=== PATIENT | female | born 1985 | race Caucasian/White ===

== ENCOUNTER → 2016-08-21 | Outpatient (CLI) | payer OTHER ==
[~2016-08-21] MED LIST: IRON TABLETS325 MG PO; MOTRIN 400MG.400 MG PO; PRENATAL VITAMI1 TA3 PO
[2016-08-21 11:42] LABS: LYMPH # 1.1 K/mm3 (0.7-4.5); LYMPH % 22.5 % (10-50.0)
[2016-08-21 12:36] LABS: ABO BLOOD TYPE A; RH BLOOD TYPE NEGATIVE
[2016-08-22 08:39] LABS: HIV Screen 4th Generation wRfx Non Reactive (Non Reactive); Rapid Plasma Reagin, Quant Non Reactive (NonRea<1:1)
[2016-08-22 09:42] LABS: HBsAg Screen Negative (Negative)
== END ==
LOC: LAB 11:14
PROVIDERS: Nurse Practitioner Obstetrics & Gynecology
DX: Z34.80 Encounter for supervision of other normal pregnancy, unspecified trimester (principal)
CPT/HCPCS: G0432

== ENCOUNTER 2017-01-01 08:02 | Outpatient (CLI) | payer OTHER ==
[2017-01-01 09:03] LABS: HEMOGLOBIN 11.8 g/dL (12.2-16.2)
[2017-01-01 10:12] LABS: ABO BLOOD TYPE A; RH BLOOD TYPE NEGATIVE; RHOGAM LOT # RHOGAM INFORMATION
== END 2017-01-01 11:00 | disposition home or self-care (01) ==
LOC: LAB 08:02
PROVIDERS: Nurse Practitioner Obstetrics & Gynecology
DX: O36.0110 Maternal care for anti-D [Rh] antibodies, first trimester, not applicable or unspecified (principal)
CPT/HCPCS: J2790

== ENCOUNTER → 2017-03-12 | Outpatient (CLI) | payer OTHER | LOC: LAB 17:33 | DX: Z34.80 Encounter for supervision of other normal pregnancy, unspecified trimester (principal) ==

== ENCOUNTER 2017-04-09 01:33 | Inpatient (IN) | payer OTHER ==
[~2017-04-09] VITALS: Ht 162.6 cm; Wt 81.6 kg
[2017-04-09 05:43] LABS: HEMOGLOBIN 11.5 g/dL (12.2-16.2); LYMPH # 1.6 K/mm3 (0.7-4.5); LYMPH % 29.2 % (10-50.0)
[2017-04-09 05:59] VITALS: BP 122/74
[2017-04-09 06:06] LABS: ABO BLOOD TYPE A
[2017-04-09 06:29] LABS: RH BLOOD TYPE NEGATIVE
--- NOTE | 2017-04-09 08:19 | LABOR NOTE ---
Laboring Subjective Subjective Date 04/09/17 Time 0817 Subjective: Pt is having regular contractions Laboring Objective Objective NST: Reactive Contractions: q 2-3 minutes Cervical dilation: 5 Effacement: 75% Station: -3 Membranes are: Bulging Fetus monitoring? Yes Type: External Laboring Assessment Assessment Progressing? Yes Cephalopelvic disproportion? No Problem List: 1. Delivery normal Laboring Plan Plan Anethesia for epidural? Yes Continue to labor down? Yes Plan for ? No Continue to monitor? Yes Start pushing? No Comment: Her membranes are intact and the baby's head is still ballotable. I LEFT the membranes intact. She has a bulging bag of water at 5 cm dilated. at 0818
[2017-04-09 09:00] VITALS: BP 108/73
[2017-04-09 09:09] LABS: URINE BILIRUBIN - DIPSTICK NEGATIVE (NEG); URINE BLOOD NEGATIVE (NEG)
[2017-04-09 09:57] LABS: URINE SQUAMOUS CELLS OCC #/hpf (0-5)
--- NOTE | 2017-04-09 10:01 | LABOR NOTE ---
Laboring Subjective Subjective Date 04/09/17 Time 1000 Subjective: Pt is having regular contractions Laboring Objective Objective NST: Reactive Contractions: q 2-3 minutes Cervical dilation: 6 Effacement: 90% Station: -2 Membranes are: Artificially ruptured (with clear fluid) Fetus monitoring? Yes Type: External Laboring Assessment Assessment Progressing? Yes Cephalopelvic disproportion? No Problem List: 1. Delivery normal Laboring Plan Plan Anethesia for epidural? Yes Continue to labor down? Yes Plan for ? No Continue to monitor? Yes Start pushing? No at 1001
--- NOTE | 2017-04-09 13:40 | LABOR NOTE ---
Laboring Subjective Subjective Date 04/09/17 Time 1339 Subjective: Pt is having regular contractions Laboring Objective Objective NST: Reactive Contractions: q 2-3 minutes Cervical dilation: 9 (fully) Effacement: 100% Station: +2 Membranes are: Artificially ruptured Fetus monitoring? Yes Type: External Laboring Assessment Assessment Progressing? Yes Cephalopelvic disproportion? No Problem List: 1. Delivery normal Laboring Plan Plan Anethesia for epidural? Yes Continue to labor down? Yes Plan for ? No Continue to monitor? Yes Start pushing? Yes at 1340
--- NOTE | 2017-04-09 14:08 | Delivery Note ---
Delivery note Delivery date: 04/09/17 Delivery time: 1345 Anesthesia: Epidural, Hernán Escalera Was labor medically induced? Yes Gestational age in weeks: 40 weeks Days: 1 day Delivery prior to 39 weeks? No Sex: male score at one minute: 8 at 5 minutes: 9 Type of suction: bulb AF: Clear fluid LAC or MLE: LAC (2nd degree) Delivery procedure: Normal Delivery Delivery of placenta: spontaneous Clinical note She is a 31-year-old 2 para 1 who was 40+1 weeks gestational age. She is feeling lots of pressure and as result of that we elected to augment her labor. She was started on IV oxytocin had her membranes ruptured. She progressed to full dilation and delivered spontaneously a liveborn male child at 1340 5 in the afternoon of April 09, 2017. The baby was a liveborn male child with Apgars of 8 at 1 minute and 9 at 5 minutes. On delivery the head the anterior shoulder then delivered followed by the rest infant's body atraumatically. The oropharynx and nasopharynx were bulb suctioned. We allowed the cord to continue to pulsate for approximately 1 minute. We then doubly clamped cord and cut the cord. The baby was then placed on the mother's abdomen for further care. The nurses assigned Apgars of 8 at 1 minute and 9 at 5 minutes. We then obtained cord blood as well as cord pH. The patient received IV oxytocin. Using gentle traction on the cord and countertraction on the fundus I was able to easily deliver the placenta intact. It had a normal three-vessel cord. She had a second-degree perineal laceration that was repaired in the usual fashion with 2-0 Vicryl suture to the deep tissues and 3-0 Vicryl suture to the superficial tissues. She has a Rh negative blood, she is rubella immune and was group B streptococcus negative. She plans to breast-feed. Her nutrition is Dr. Garduno. Estimated blood loss was approximately 400 mL. at 1647
[2017-04-10 07:10] LABS: HEMOGLOBIN 10.2 g/dL (12.2-16.2)
--- NOTE | 2017-04-10 08:03 | ACUTE CARE PROGRESS NOTE (QUA) ---
Progress Notes Subjective Date 04/10/17 Time 0801 Note She is doing very well this morning. She is eating and drinking and ambulating. She is breast-feeding. Her lochia is normal. Patient/family reports: feeling better, no complaints Objective Findings Last VS-Temp:97.7 B/P:108/73 Pulse:91 Resp:18 SaO2: Last weight lbs:180 oz:0 K.648 Method:Stated Laboratory Tests 04/10/17 0606: Hgb 10.2 L, Hct 31.1 L 04/09/17 1350: Cord Blood pH 7.21 L 04/09/17 0820: Urine Color YELLOW, Urine Appearance CLEAR, Urine pH 6.0, Ur Specific [place] <= 1.005, Urine Protein NEGATIVE, Urine Ketones NEGATIVE, Urine Blood NEGATIVE, Urine Nitrate NEGATIVE, Urine Bilirubin NEGATIVE, Urine Urobilinogen 0.2, Ur Leukocyte Esterase NEGATIVE, Urine RBC NONE, Urine WBC NONE, Ur Squamous Epith Cells OCC, Urine Bacteria NONE, Urine Glucose NEGATIVE Exam General appearance: normal appearance, alert, awake, no acute distress Reviewed: vital signs, lab results Assessment/Plan Problem List 1. Delivery normal Patient condition Improving, Stable Plan: continue current care This inpt stay is expected to cross 2 MNs from start of care Yes Comments: She is doing very well this morning. We will plan to send her home tomorrow. at 0802
[2017-04-10 08:20] VITALS: BP 131/71
[2017-04-10 09:28] LABS: ABO BLOOD TYPE A; RH BLOOD TYPE NEGATIVE
[2017-04-10 09:40] LABS: FETALSCREEN NEGATIVE (NEGATIVE); RHOGAM LOT # RHOGAM INFORMATION
[2017-04-11 07:45] VITALS: BP 121/74
--- NOTE | 2017-04-11 08:40 | ACUTE CARE PROGRESS NOTE (QUA) ---
Progress Notes Subjective Date 04/11/17 Time 0839 Note She continues to do very well. She is eating and drinking and ambulating. She is breast-feeding. Her lochia is normal. Patient/family reports: feeling better, no complaints Objective Findings Last VS-Temp:97.7 B/P:131/71 Pulse:92 Resp:16 SaO2: Last weight lbs:180 oz:0 K.648 Method:Stated Exam General appearance: normal appearance, alert, awake, no acute distress Reviewed: vital signs, lab results Assessment/Plan Problem List 1. Delivery normal Patient condition Improving, Stable Plan: continue current care, initiate discharge plan This inpt stay is expected to cross 2 MNs from start of care Yes Comments: She is doing very well this morning. We'll plan to send her home. at 0839
--- NOTE | 2017-04-11 08:43 | Discharge Summary ---
Discharge Summary Admission date: 04/09/17 Discharge date: 04/11/17 Discharge diagnoses: Postterm , spontaneous vaginal delivery Clinical note: She is a 31-year-old 2 now para 2 who is 40+1 weeks gestational age. She was having pressure and occasional contractions. Since she was post dates we elected to augment her labor. Course in hospital: She was started on IV oxytocin and under labor epidural progressed to full dilation. She delivered spontaneously a liveborn male child at 1:45 PM in the afternoon of April 09, 2017. Baby weighed 8 lbs. 11 oz. and was 19-1/2 inches long. He had Apgars of 8 at 1 minute and 9 at 5 minutes. She has done well and has remained afebrile throughout her hospitalization. She is eating and drinking and ambulating. She is breast- feeding. She has A Rh negative blood, she is rubella immune and was group B streptococcus negative. She did receive RhoGam. Her configuration management consultant is Dr. Garduno. Laboratory Tests 04/10/17 0952: RhIG Dose Recommended RHOGAM RELEASE 04/10/17 0614: RBC Mohini Test NEGATIVE, Antibody Screen NEGATIVE, Miscellaneous Test NEGATIVE 04/10/17 0606: Hgb 10.2 L, Hct 31.1 L 04/09/17 1350: Cord Blood pH 7.21 L 04/09/17 0820: Urine Color YELLOW, Urine Appearance CLEAR, Urine pH 6.0, Ur Specific [place] <= 1.005, Urine Protein NEGATIVE, Urine Ketones NEGATIVE, Urine Blood NEGATIVE, Urine Nitrate NEGATIVE, Urine Bilirubin NEGATIVE, Urine Urobilinogen 0.2, Ur Leukocyte Esterase NEGATIVE, Urine RBC NONE, Urine WBC NONE, Ur Squamous Epith Cells OCC, Urine Bacteria NONE, Urine Glucose NEGATIVE 04/09/17 0530: MCH 28.2 04/09/17 0530: WBC 5.6, RBC 4.07 L, Hgb 11.5 L, Hct 33.6 L, MCV 82.6, RDW 14.7, Plt Count 193, MPV 10.5 H, Gran % 60.2, Gran # 3.4, Lymphocytes % 29.2, Monocytes % 7.0, Eosinophils % 3.3, Basophils % 0.3, Lymphocytes # 1.6, Monocytes # 0.4, Eosinophils # 0.2, Basophils # 0.0, PUBS MCHC 34.1, Antibody Screen NEGATIVE, Miscellaneous Test NEGATIVE Plans for ongoing care: She is discharged home to follow-up with me in approximately 2 weeks' time. Discharge medications She'll continue with her vitamins and iron. She will take over-the- counter analgesics for any discomfort. DC/follow-up instructions She was given the usual instructions with respect to limiting her activity, driving and sexual activity. Condition at discharge Stable and. Improved at 0842
== END 2017-04-11 10:05 | disposition home or self-care (01) | DRG 775 ==
LOC: OB 01:33
PROVIDERS: Nurse Practitioner Obstetrics & Gynecology
PROC: 10E0XZZ Delivery of Products of Conception, External Approach (ICD-10-PCS; principal; 2017-04-09)
PROC: 0KQM0ZZ Repair Perineum Muscle, Open Approach (ICD-10-PCS; principal; 2017-04-09)
DX: O70.1 Second degree perineal laceration during delivery (principal); Z37.0 Single live birth; Z3A.40 40 weeks gestation of pregnancy
CPT/HCPCS: J2790